=== PATIENT | female | born 1960 | race Caucasian/White ===

== ENCOUNTER 2017-05-29 12:44 | Emergency (ER) | payer OTHER, MEDICAID ==
[~2017-05-29] VITALS: Ht 157.5 cm; Wt 61.2 kg
[2017-05-29 14:56] VITALS: BP 120/64
== END 2017-05-29 14:56 | disposition home or self-care (01) ==
LOC: ED 12:44
DX: J06.9 Acute upper respiratory infection, unspecified (principal)

== ENCOUNTER 2017-08-04 09:19 | Emergency (ER) | payer OTHER, MEDICAID ==
[2017-08-04 09:48] LABS: CARBON DIOXIDE 30.1 mmol/L (21-32); CHLORIDE SERUM 101 mmol/L (98-107); CREATININE SERUM 0.7 mg/dL (0.6-1.0); GFR1 > 60 mL/min; GLUCOSE SERUM 112 mg/dL (74-106); POTASSIUM SERUM 3.5 mmol/L (3.5-5.1); SODIUM SERUM 138 mmol/L (136-145)
[2017-08-04 09:53] LABS: ALKALINE PHOSPHATASE 130 U/L (46-116); ALT/SGPT 42 U/L (14-59); AST/SGOT 36 U/L (15-37); BILIRUBIN TOTAL 1.9 mg/dL (0.20-1.00); TOTAL PROTEIN, SERUM 7.5 g/dL (6.4-8.2)
[2017-08-04 09:57] LABS: BASOPHIL % 0.2 % (0-2); PLATELET COUNT 267 x10^3mcL (130-400)
[2017-08-04 10:04] LABS: RED CELL DISTRIBUTION WIDTH 15.3 % (11.5-14.5)
[2017-08-04 13:26] VITALS: BP 132/81
== END 2017-08-04 13:27 | disposition home or self-care (01) ==
LOC: ED 09:19
DX: R07.9 Chest pain, unspecified (principal); F19.239 Other psychoactive substance dependence with withdrawal, unspecified; M54.9 Dorsalgia, unspecified; R11.10 Vomiting, unspecified; M25.532 Pain in left wrist
CPT/HCPCS: 83880; J2405; J7030; Q0092